=== PATIENT | female | born 1960 | race Two or more races ===

== ENCOUNTER 2025-01-21 09:06 | Emergency (ER) | payer OTHER ==
[~2025-01-21] VITALS: Ht 154.9 cm; Wt 53.5 kg
[2025-01-21] MEDS ORDERED: SYNTHROID100 MCG PO (09:26)
[2025-01-21] MEDS ORDERED: COZAAR25 MG PO (09:27)
[2025-01-21] MEDS ORDERED: PROTONIX20 MG PO (09:27)
[2025-01-21] MEDS ORDERED: PROZAC20 MG PO (09:27)
[2025-01-21] MEDS ORDERED: CHLORDIAZEPOXID10 MG PO (09:29)
[2025-01-21] MEDS ORDERED: RESTORIL15 MG PO (09:30)
[2025-01-21] MEDS ORDERED: SEROQUEL25 MG PO (09:30)
[2025-01-21] MEDS ORDERED: AMITRIPTYLINE H25 MG PO (09:32)
[2025-01-21] MEDS ORDERED: PEPCID AC20 MG (09:33)
[2025-01-21] MEDS ORDERED: LIPITOR40 MG (09:34)
[2025-01-21] MEDS ORDERED: 0.9 % SODIUM CHLORIDE 1,000 ML IV SCH (10:00)
[2025-01-21] MEDS ORDERED: ONDANSETRON HCL 4 MG in 0.9 % SODIUM CHLORIDE 50 ML IV ONE (10:00)
[2025-01-21] MEDS ORDERED: FAMOtidine 10 MG/ML (4ML VIAL) IV PUSH ONE (10:00)
[2025-01-21 12:13] LABS: BASO % 0.3 % (0.1-1.2); EOS # 0.06 (0.04-0.54); EOS % 0.7 % (0.7-7.0); LYMPH # 1.37 (1.18-3.74); LYMPH % 15.6 % (19.3-53.1); MEAN PLATELET VOLUME 9.00 fl (9.4-12.4); MONO # 0.33 (0.24-0.82); MONO % 3.8 % (4.7-12.5); NEUT # 6.97 (1.56-6.13); NEUT % 79.3 % (34.0-71.1); RED CELL DISTRIBUTION WIDTH 14.4 % (11.6-14.4)
[2025-01-21 12:35] LABS: INR 1.04
[2025-01-21 12:54] LABS: ALT/SGPT 60.0 U/L (12-78); AST/SGOT 30.0 U/L (15-37); BILIRUBIN TOTAL 0.51 mg/dL (0.3-1.2); BUN CREA RATIO 13.0 (7.0-25.0); CREATININE SERUM 0.61 mg/dL (0.55-1.02); GFR 98.43; GLOBULINA 3.2 G/DL (2.4-3.5); GLUCOSE FASTING 95.0 mg/dL (65-100); OSMOLALITY SERUM 283.0 MOSM/KG (275-295)
[2025-01-21 14:20] LABS: URINE APPEARANCE Clear; URINE BILIRRUBIN Negative (NEGATIVE); URINE BLOOD Negative; URINE COLOR Yellow; URINE GLUCOSE Negative (NEGATIVE); URINE KETONE Negative (NEGATIVE); URINE LEUKOCYTE Negative; URINE NITRATE Negative; URINE PROTEIN Negative (NEGATIVE); URINE UROBILINOGEN 0.2 E.U./dl
[2025-01-21 14:23] LABS: URINE BACTERIA 287.8 uL (0.0-1933); URINE EPITHELIAL CELLS 32.2 uL (0.0-38.8); URINE RBC 2.4 uL (0.0-20.8); URINE WBC 7.0 uL (0.0-23.2)
[2025-01-21 14:29] LABS: URINE CAST 0.00 uL (0.0-1.40)
== END 2025-01-21 17:49 | disposition home or self-care (01) ==
LOC: ER 09:07
PROVIDERS: General Practice
DX: R10.32 Left lower quadrant pain (principal); E03.9 Hypothyroidism, unspecified; I10 Essential (primary) hypertension